=== PATIENT | male | born 1950 | race Caucasian/White ===

== ENCOUNTER 2025-08-09 10:55 | Outpatient (CLI) | payer OTHER ==
[2025-08-09 13:29] LABS: #Basophils 0.06 10x3/uL (0.0-0.2); #Eosinophils 0.29 10x3/uL (0.0-0.5); #Monocytes 0.85 10x3/uL (0.0-1.1); #Neutrophils 6.53 10x3/uL (1.5-8.4); %Basophils 0.6 % (0.0-2.0); %Eosinophils 2.9 % (0.0-6.0); %Lymphocytes 23.1 % (18.0-47.0); %Monocytes 8.4 % (0.0-10.0); %Neutrophils 64.6 % (40.0-75.0); Hematocrit 45.6 % (38.8-50.0); Hemoglobin 14.5 g/dL (13.5-17.5); Mean Corpuscular Hemoglobin 24.7 pg (27.0-33.0); Mean Corpuscular Volume 77.7 fL (81.2-95.1); Platelet Count 388 10x3/uL (150-450); Red Blood Cell (RBC) Count 5.87 10x6/uL (4.32-5.72); White Blood Cell (WBC) Count 10.11 10x3/uL (3.5-10.5)
[2025-08-09 13:54] LABS: Anion Gap 15 mmol/L (10-20); BUN (Urea Nitrogen) 14 mg/dL (8.4-25.7); Calc. Creatinine Clearance 0 mL/min (70-130); Calcium 9.0 mg/dL (7.8-10.44); Carbon Dioxide 21 mmol/L (23-31); Chloride 103 mmol/L (98-107); Glucose 87 mg/dL (83-110); Potassium 4.4 mmol/L (3.5-5.1); Sodium 135 mmol/L (136-145)
== END 2025-08-09 10:56 | disposition home or self-care (01) ==
LOC: CSHLAB 10:55
PROVIDERS: ATTEND Specialist
DX: Z01.818 Encounter for other preprocedural examination (principal); C18.9 Malignant neoplasm of colon, unspecified
CPT/HCPCS: 71046; 80048; 83036; 85025; 93005; 93010